=== PATIENT | male | born 1985 | race Hispanic/Latino ===

== ENCOUNTER 2017-02-28 10:02 | Emergency (ER) | payer SELFPAY ==
[2017-02-28 10:22] VITALS: RESP 18
--- NOTE | 2017-02-28 10:54 | ED PDOC ---
Arrival/HPI - General Chief Complaint: Med Refill Time Seen by Provider: 02/28/17 10:40 Historian: Patient - History of Present Illness Narrative History of Present Illness (Text): 02/28/17 10:51 31 yo male w/Past medical history of anxiety come in accompanied by mother request medication refill-Clonazepam 2 mg takes twice daily for " my anxiety". As per pt, was unable to see doctor " left for holidays". At present time, pt denies suicidal or homocidal ideation, depression, denies any active physical complaints. Ambulate to Emergency department for evaluation, not in any apparent distress. Past Medical History - Provider Review Nursing Documentation Reviewed: Yes - Travel History Have you recently traveled outside [place] w/in the past 3 mons?: No - Infectious Disease Hx of Infectious Diseases: None - Psychiatric Hx Anxiety: Yes Hx Substance Use: Yes Family/Social History - Physician Review Nursing Documentation Reviewed: Yes Family/Social History: No Known Family HX Smoking Status: Light Smoker < 10 Cigarettes Daily Hx Alcohol Use: Yes Frequency of alcohol use: Socially Hx Substance Use: Yes Allergies/Home Meds Allergies/Adverse Reactions: Allergies No Known Allergies Allergy (Verified 02/28/17 10:22) Home Medications: Home Meds Medication Instructions Recorded Confirmed Clonazepam [Klonopin] 1 tab PO BID 02/28/17 02/28/17 Review of Systems - Review of Systems Constitutional: Normal Eyes: Normal ENT: Normal Respiratory: Normal Cardiovascular: Normal Gastrointestinal: Normal Genitourinary Male: Normal Musculoskeletal: Normal Skin: Normal Neurological: Normal Endocrine: Normal Hemo/Lymphatic: Normal Psychiatric: Anxiety Physical Exam Vital Signs Reviewed: Yes Vital Signs Temp Pulse Resp BP Pulse Ox 02/28/17 10:20 98.1 F 84 18 139/83 99 Temperature: Afebrile Blood Pressure: Normal Pulse: Regular Respiratory Rate: Normal Appearance: Positive for: Well-Appearing, Non-Toxic, Comfortable Pain Distress: None Mental Status: Positive for: Alert and Oriented X 3 - Systems Exam Head: Present: Atraumatic, Normocephalic Pupils: Present: PERRL Extroacular Muscles: Present: EOMI Conjunctiva: Present: Normal Mouth: Present: Moist Mucous Membranes Neck: Present: Normal Range of Motion Respiratory/Chest: Present: Clear to Auscultation, Good Air Exchange. No: Respiratory Distress, Accessory Muscle Use Cardiovascular: Present: Regular Rate and Rhythm, Normal S1, S2. No: Murmurs Abdomen: Present: Normal Bowel Sounds. No: Tenderness, Distention, Peritoneal Signs Back: Present: Normal Inspection Upper Extremity: Present: Normal Inspection. No: Cyanosis, Edema Lower Extremity: Present: Normal Inspection. No: Edema Neurological: Present: GCS=15, CN II-XII Intact, Speech Normal Skin: Present: Warm, Dry, Normal Color. No: Rashes Psychiatric: Present: Alert, Oriented x 3, Normal Insight, Normal Concentration Medical Decision Making ED Course and Treatment: 02/28/17 11:04 On re-evaluation, pt is afebrile, hemodynamicalys table. Non-toxic. Appropriate, denies any active physical complaints. [place] RX review, conformed, pt received Rx: Clonazepam 2mg from . Last rx was on 11/23/16. Pt advised and ref. to F/U with PMD, PSych in 2-3 days for re-eval and further tx. return to Emergency department if any worsening or new changes. Disposition/Present on Arrival - Present on Arrival Any Indicators Present on Arrival: No History of DVT/PE: No History of Uncontrolled Diabetes: No Urinary Catheter: No History of Decub. Ulcer: No History Surgical Site Infection Following: None - Disposition Have Diagnosis and Disposition been Completed?: Yes Diagnosis: Anxiety, Medication refill Disposition: HOME/ ROUTINE Disposition Time: 10:50 Patient Plan: Discharge Patient Problems: Current Active Problems Problem Status Onset Anxiety Acute Medication refill Acute Condition: STABLE Discharge Instructions (ExitCare): Anxiety (ED), Medicine Refill (ED) Additional Instructions: FOLLOW UP WITH PMD, PSYCHIATRIST IN 2-3 DAYS FOR RE-EVALUATION AND FURTHER TREATMENT NEED RETURN TO Emergency department IF ANY WORSENING OR NEW CHANGES. Prescriptions: Clonazepam 2 mg PO BID #10 tablet Referrals: Terrance Choudhary MD [Family Provider] - Follow up with primary Forms: [facility] ([place]anese)
[2017-02-28 11:16] VITALS: BP 138/75; PULSE 69; TEMP 98.5; O2SAT 97
== END 2017-02-28 11:13 | disposition home or self-care (01) ==
LOC: ED 10:02
DX: Z76.0 Encounter for issue of repeat prescription (principal); F41.9 Anxiety disorder, unspecified; F17.210 Nicotine dependence, cigarettes, uncomplicated

== ENCOUNTER 2017-03-12 11:09 | Emergency (ER) | payer SELFPAY ==
[2017-03-12 11:37] VITALS: BMI 20.9
[2017-03-12 11:42] VITALS: BP 107/73; PULSE 73; RESP 18; TEMP 98.7; O2SAT 98
--- NOTE | 2017-03-12 12:19 | ED PDOC ---
Arrival/HPI - General Chief Complaint: Med Refill Time Seen by Provider: 03/12/17 12:16 Historian: Patient - History of Present Illness Narrative History of Present Illness (Text): 03/12/17 12:16 31yo male with PMhx of Panic attacks present requesting a refill of Clonazepam 2mg. States he ran out of his medications and his PMD is on vacation. He denies any current panic attack. Denies chest pain, SOB, dizziness, any other complaint. Past Medical History - Provider Review Nursing Documentation Reviewed: Yes - Infectious Disease Hx of Infectious Diseases: None - Psychiatric Hx Anxiety: Yes Hx Substance Use: Yes - Anesthesia Hx Anesthesia: No Family/Social History - Physician Review Nursing Documentation Reviewed: Yes Family/Social History: Unknown Family HX Smoking Status: Light Smoker < 10 Cigarettes Daily Hx Alcohol Use: Yes Hx Substance Use: Yes Allergies/Home Meds Allergies/Adverse Reactions: Allergies No Known Allergies Allergy (Verified 02/28/17 10:22) Review of Systems - Physician Review All systems were reviewed & negative as marked: Yes - Review of Systems Constitutional: Normal Eyes: Normal ENT: Normal Respiratory: Normal Cardiovascular: Normal Gastrointestinal: Normal Genitourinary Male: Normal Musculoskeletal: Normal Skin: Normal Neurological: Normal Endocrine: Normal Hemo/Lymphatic: Normal Psychiatric: Normal, Other (Medication refill) Physical Exam Vital Signs Reviewed: Yes Vital Signs Temp Pulse Resp BP Pulse Ox 03/12/17 11:42 98.7 F 73 18 107/73 98 Temperature: Afebrile Blood Pressure: Normal Pulse: Regular Respiratory Rate: Normal Appearance: Positive for: Well-Appearing, Non-Toxic, Comfortable Pain Distress: None Mental Status: Positive for: Alert and Oriented X 3 - Systems Exam Head: Present: Atraumatic, Normocephalic Pupils: Present: PERRL Extroacular Muscles: Present: EOMI Conjunctiva: Present: Normal Mouth: Present: Moist Mucous Membranes Neck: Present: Normal Range of Motion Respiratory/Chest: Present: Clear to Auscultation, Good Air Exchange. No: Respiratory Distress, Accessory Muscle Use Cardiovascular: Present: Regular Rate and Rhythm, Normal S1, S2. No: Murmurs Abdomen: Present: Normal Bowel Sounds. No: Tenderness, Distention, Peritoneal Signs Back: Present: Normal Inspection Upper Extremity: Present: Normal Inspection. No: Cyanosis, Edema Lower Extremity: Present: Normal Inspection. No: Edema Neurological: Present: GCS=15, CN II-XII Intact, Speech Normal Skin: Present: Warm, Dry, Normal Color. No: Rashes Psychiatric: Present: Alert, Oriented x 3, Normal Insight, Normal Concentration Medical Decision Making ED Course and Treatment: 03/12/17 12:18 PT was advised to we don't give refill of Clonezapepam. He was offered the option os seeing a Psychiatrist and he walked out, stating that he don't need to see a psychiatrist for his refill. He was not in any distress. Disposition/Present on Arrival - Present on Arrival Any Indicators Present on Arrival: No History of DVT/PE: No History of Uncontrolled Diabetes: No Urinary Catheter: No History of Decub. Ulcer: No History Surgical Site Infection Following: None - Disposition Have Diagnosis and Disposition been Completed?: Yes Diagnosis: Medication refill Disposition: ELOPEMENT - ER ONLY Disposition Time: 12:10 Condition: GOOD
== END 2017-03-12 12:20 | disposition left against medical advice (07) ==
LOC: ED 11:09
DX: Z76.0 Encounter for issue of repeat prescription (principal); F17.210 Nicotine dependence, cigarettes, uncomplicated